=== PATIENT | female | born 1955 | race Caucasian/White ===

== ENCOUNTER 2018-07-08 12:14 | Emergency (ER) | payer SELFPAY ==
[~2018-07-08] VITALS: Ht 160 cm; Wt 81.0 kg
[2018-07-08] MEDS ORDERED: ROPI1TAB PO (13:17)
--- NOTE | 2018-07-08 13:22 | NUR ---
FIRST CONTACT WITH PT. PT C/O BILATERAL ALL QUADRANTS ABD PAIN X 4 DAYS. PT STATES PAIN WORSE ON UPPER LEFT SIDE. PT DENIES N/V/BACK PAIN AT THIS TIME. PT STATS STARTING DIARRHEA TODAY. PT AOX4. RESPS EVEN AND UNLABORED. AWAITING EDMD ASSESSMENT AT THIS TIME. BP AND SPO2 MONITORS IN PLACE. CALL LIGHT WITHIN REACH.
--- NOTE | 2018-07-08 14:01 | NUR ---
preceptor note: JOEY ORLANDO AT BEDSIDE. AWAITING ORDERS AT THIS TIME.
--- NOTE | 2018-07-08 14:02 | NUR ---
JOEY ORLANDO AT BEDSIDE TO ASSESS.
[2018-07-08] MEDS ORDERED: MAALOX/HYOSCYAMINE/LIDOCAINE 45 ML BTL ONE (14:23)
[2018-07-08] MEDS ORDERED: FAMOTIDINE 20 MG/2 ML ONE (14:23)
[2018-07-08] MEDS ORDERED: FAMOTIDINE 20 MG/2 ML IVP ONE (14:30)
[2018-07-08] MEDS ORDERED: MAALOX/HYOSCYAMINE/LIDOCAINE 45 ML BTL PO ONE (14:30)
[2018-07-08] MEDS ORDERED: SODIUM CHLORIDE FLUSH 10ML SYR IVF ONE (14:30)
[2018-07-08 14:41] LABS: BASOPHILS # (AUTO) 0.03 x10^3/uL (0-0.1); BASOPHILS % (AUTO) 1 % (0-1); EOSINOPHILS # (AUTO) 0.07 x10^3/uL (0-0.4); EOSINOPHILS % (AUTO) 1 % (1-7); LYMPHOCYTES # (AUTO) 2.39 x10^3/uL (1-3.4); LYMPHOCYTES % (AUTO) 40 % (22-44); MD NO; MEAN CORPUSCULAR HEMOGLOBIN 29.9 pg (27.0-34.8); MEAN CORPUSCULAR HGB CONC 34.6 g/dL (32.4-35.8); MEAN CORPUSCULAR VOLUME 86.5 fL (80-100); MEAN PLATELET VOLUME 8.5 fL (7.4-10.4); MONOCYTES # (AUTO) 0.41 x10^3/uL (0.2-0.8); MONOCYTES % (AUTO) 7 % (2-9); NEUTROPHILS # (AUTO) 3.09 x10^3/uL (1.8-6.8); NEUTROPHILS % (AUTO) 52 % (42-75); PLATELET COUNT 176 x10^3/uL (130-400); RED BLOOD COUNT 5.28 x10^6/uL (3.82-5.3); RED CELL DISTRIBUTION WIDTH 13.4 % (9.6-15.2)
--- NOTE | 2018-07-08 14:52 | NUR ---
PT MEDICATED PER EMAR. PT TOLERATED WELL. PT AOX4. RESPS EVEN AND UNLABORED.
[2018-07-08 14:53] LABS: ALBUMIN 4.1 g/dL (3.4-5.0); ANION GAP 6 mmol/L (5-15); CHLORIDE 107 mmol/L (98-107)
--- NOTE | 2018-07-08 14:53 | NUR ---
Aubree soria in [facility] - 07/08/18 at 1453 by LIBERTY PT
--- NOTE | 2018-07-08 14:54 | NUR ---
EKG DONE WITH THIS RN. PT AMB TO BR AND BACK TO ROOM WITH STEADY GAIT.
[2018-07-08 15:05] LABS: ALANINE AMINOTRANSFERASE 37 U/L (12-78); ALKALINE PHOSPHATASE 52 U/L (45-117); BILIRUBIN,TOTAL 0.4 mg/dL (0.2-1.0); CREATININE 0.83 mg/dL (0.55-1.02); TOTAL PROTEIN 7.6 g/dL (6.4-8.2)
[2018-07-08 15:29] VITALS: BP 136/52
--- NOTE | 2018-07-08 15:50 | NUR ---
all results back, chart up for recheck. awaiting MD and dispo.
--- NOTE | 2018-07-08 15:51 | NUR ---
JOEY ORLANDO AT BEDSIDE AND EXPLAINING ALL RESULTS AT THIS TIME.
--- NOTE | 2018-07-08 15:55 | NUR ---
PT STATES PAIN REDUCED 3/10 AT THIS TIME. AWAITING DC ORDER.
--- NOTE | 2018-07-08 16:10 | NUR ---
task rn: Patient/Caregiver given discharge instructions and they have confirmed that they understand the instructions. Patient ambulatory with steady gait.
== END 2018-07-08 16:11 | disposition home or self-care (01) ==
LOC: ED 13:21
DX: R10.84 Generalized abdominal pain (principal)
CPT/HCPCS: 36415; 74022; 80053; 83690; 85025; 86677; 93005; 96374; 99284; J3490